=== PATIENT | female | born 1965 | race Caucasian/White ===

== ENCOUNTER 2018-06-12 09:31 | Emergency (ER) | payer OTHER ==
--- NOTE | 2018-06-12 09:39 | PDOC ---
History of Present Illness - General Chief Complaint: Injury Stated Complaint: FALL Time Seen by Provider: 06/12/18 09:38
[2018-06-12 09:45] VITALS: BP 138/92; PULSE 87; TEMP 97.6; BMI 25.7
--- NOTE | 2018-06-12 09:52 | PDOC ---
History of Present Illness - General Chief Complaint: Injury Stated Complaint: FALL Time Seen by Provider: 06/12/18 09:38 History Source: Patient Exam Limitations: No Limitations - History of Present Illness Initial Comments: 06/12/18 09:54 53y F hx of depression presents sp fall approx 1.5 hours. She cought her L foot on a carpet edge, landing on her left side. Now with complaint of L sided body pain particulrly left hip and knee. Also with complaints of pain to her L shoulder and L ankle. No head injury, loc, back pain, neck pain. No preceding cp , palptiations, sob, lighteahdedness, abd pain, n/v, f/c, cough, diarrhea, dysuria, melena, bpr. surgical hx: hysterectomy, cholecystecomty, csection Past History - Past Medical History Allergies/Adverse Reactions: Allergies Allergy/AdvReac Type Severity Reaction Status Date / Time codeine Allergy Verified 06/12/18 09:46 Home Medications: Ambulatory Orders Fluoxetine HCl [Prozac] mg PO DAILY 06/12/18 Phentermine/Topiramate [Qsymia 7.5 mg-46 mg Capsule] 1 each PO DAILY 06/12/18 COPD: No Psychiatric Problems: Yes (depression) - Surgical History Appendectomy: Yes Cholecystectomy: Yes - Suicide/Smoking/Psychosocial Hx Smoking History: Current every day smoker Information on smoking cessation initiated: No Hx Alcohol Use: No Drug/Substance Use Hx: No Review of Systems - Review of Systems Able to Perform ROS?: Yes Comments:: 06/12/18 10:15 Constitutional - no reported Fever, Chills, HEENT: no reported vision changes, sore throat Respiratory: no reported cough, sob, hemoptysis Cardiac: no reported chest pain, palpitations, light headedness, leg swelling Abd/GI: no reported abd pain, nausea, vomiting, blood per rectum, melena, diarrhea Musculskelatal - +L hip pain, L knee pain, L ankle pain, L shoulder pain no reported back pain, joint swelling skin - no reported bruising, erythema, rash neurological: no reported headache, numbness, focal weakness, tingling, hematologic: no reported easy bruising, easy bleeding *Physical Exam - Vital Signs Last Vital Signs Temp Pulse Resp BP Pulse Ox 97.6 F 87 16 138/92 98 06/12/18 09:39 06/12/18 09:39 06/12/18 09:39 06/12/18 09:39 06/12/18 09:39 - Physical Exam Comments: 06/12/18 09:57 GENERAL: The patient is awake, alert, and fully oriented, Nontoxic - in no acute distress. HEAD: Normocephalic, atraumatic. EYES: extraocular movements intact, sclera anicteric, conjunctiva clear. NECK: Normal range of motion, supple, no focal midline bony ttp to cervical spine BACK: NO focal ttp to thoracic/lumbar spine in midline, mild ttp to L posterior superior iliac spine and superior buttock ABDOMEN: Soft, nontender, No guarding, no rebound. No CVA tenderness EXTREMITIES: mild pain on log roll of L leg, diffuse ttp to L knee with small abrasion over lateral patella, mild ttp to L medial ankle, mild diffuse ttp to L shoulder but able to have limited rom including touching contralateral shoulder. NEUROLOGICAL: No facial assymetry, Normal speech, sensation intact in upper/ lower extremities. PSYCH: Normal mood, normal affect. SKIN: Warm, Dry, normal turgor, Medical Decision Making - Medical Decision Making 06/12/18 10:14 53y F sp mechanical fall w/o head injury/loc complaining of pain. will obtain xrays to ro fx will give toradol for pain will reassess 06/12/18 11:34 xrays negative for fracture will dc pt home with supportive care return precautions were discussed PMD fu I discussed the physical exam findings, ancillary test results and final diagnoses with the patient. I answered all of the patient's questions. The patient was satisfied with the care received and felt comfortable with the discharge plan and treatment plan. The patient will call their primary care physician within 24 hours to arrange follow-up and will return to the Emergency Department with any new, persistent or worsening symptoms. *DC/Admit/Observation/Transfer Diagnosis at time of Disposition: Hip pain, left Fall Qualifiers: Encounter type: initial encounter Qualified Code(s): W19.XXXA - Unspecified fall, initial encounter Knee pain, left Qualifiers: Chronicity: acute Qualified Code(s): M25.562 - Pain in left knee - Discharge Dispostion Disposition: HOME Condition at time of disposition: Improved Decision to Admit order: No - Referrals Referrals: [facility] [Provider Group] - Patient Instructions Printed Discharge Instructions: DI for Hip Pain, DI for Knee Pain Additional Instructions: Return to the emergency department immediately with ANY new, persistent or worsening symptoms. The rest, take Tylenol or Motrin as needed for pain, use heat on your sore muscles. You MUST call and follow up with your doctor in 2-3 days for further evaluation of your symptoms. Results were discussed with you. Please make sure your doctor reviews the results of your emergency evaluation. Print Language: YORUBA - Post Discharge Activity Forms/Work/School Notes: Back to Work
[2018-06-12] MEDS ORDERED: KETOROLAC TROMETHAMINE 30 MG/1 ML VIAL IVPUSH ONE (10:09)
[2018-06-12] MEDS ORDERED: KETOROLAC TROMETHAMINE 15 MG/ML VIAL ONE (10:11)
[2018-06-12] MEDS ORDERED: ACETAMINOPHEN 325 MG TABLET (FP) PO ONE (10:53)
[2018-06-12] MEDS ORDERED: traMADol HCL 50 MG TABLET PO ONE (10:53)
== END 2018-06-12 11:57 | disposition home or self-care (01) ==
LOC: JER 09:31
PROC: 3E0333Z Introduction of Anti-inflammatory into Peripheral Vein, Percutaneous Approach (ICD-10-PCS; principal; 2018-06-12)
DX: M25.551 Pain in right hip (principal); M25.562 Pain in left knee; W01.0XXA Fall on same level from slipping, tripping and stumbling without subsequent striking against object, initial encounter; Y93.89 Activity, other specified; Y92.89 Other specified places as the place of occurrence of the external cause; F17.210 Nicotine dependence, cigarettes, uncomplicated; F32.9 Major depressive disorder, single episode, unspecified
CPT/HCPCS: 73030-TC-LT-FY; 73523-TC-FY; 73562-TC-LT-FY; 73610-TC-LT-FY; 99282-25